=== PATIENT | female | born 2000 | race Caucasian/White ===

== ENCOUNTER 2021-03-20 13:19 | Emergency (ER) | payer BC ==
[~2021-03-20] VITALS: Ht 167.6 cm; Wt 72.7 kg
--- NOTE | 2021-03-20 13:44 | NUR ---
WOODROW Baldwin at bedside
[2021-03-20] MEDS ORDERED: charcoal, activated 50 GM/240 ML bottle PO ONE (13:50)
[2021-03-20 14:22] LABS: BASOPHILS % (AUTO) 0.2 % (0-1); EOSINOPHILS # (AUTO) 0.1 X10'3 (0-0.9); EOSINOPHILS % (AUTO) 0.8 % (0-6); HEMATOCRIT 37.7 % (35.0-45.0); HEMOGLOBIN 12.8 g/dl (12.0-16.0); LYMPHOCYTES % (AUTO) 30.6 % (21-51); MEAN CORPUSCULAR HEMOGLOBIN 30.7 PG (27.0-31.0); MEAN CORPUSCULAR HGB CONC 33.8 g/dL (33.0-36.5); MEAN CORPUSCULAR VOLUME 90.7 FL (78-98); MEAN PLATELET VOLUME 7.8 FL (7.4-10.4); MONOCYTES # (AUTO) 0.7 X10'3 (0-0.9); MONOCYTES % (AUTO) 7.4 % (2-12); PLATELET COUNT 276 X10'3 (140-440); RED BLOOD COUNT 4.16 X10'6 (4.20-5.60); RED CELL DISTRIBUTION WIDTH 12.7 % (11.5-14.5); WHITE BLOOD COUNT 9.8 X10'3 (4.5-11.0)
[2021-03-20 14:37] LABS: ALANINE AMINOTRANSFERASE 23 U/L (12-78); ALBUMIN 3.3 G/DL (3.4-5.0); ALKALINE PHOSPHATASE 49 IU/L (46-116); ANION GAP 11 (8-16); ASPARTATE AMINO TRANSFERASE 20 U/L (10-37); BILIRUBIN,TOTAL 0.5 MG/DL (0.1-1.0); BLOOD UREA NITROGEN 12 MG/DL (7-18); BUN/CREATININE RATIO 12.8 (6.6-38.0); CALCIUM 8.8 MG/DL (8.5-10.1); CHLORIDE 108 MMOL/L (99-107); CREATININE 0.94 MG/DL (0.40-0.90); GLUCOSE 83 MG/DL (70-104); POTASSIUM 3.2 MMOL/L (3.5-5.1); SODIUM 143 MMOL/L (135-145); TOTAL CARBON DIOXIDE 23.6 MMOL/L (24-32); TOTAL PROTEIN 6.6 G/DL (6.4-8.2); eGFR 74 ML/MIN
[2021-03-20 14:39] LABS: ACETAMINOPHEN < 2.0 UG/ML (10-30); ETHANOL < 0.010 GM/DL (0.0-0.010)
[2021-03-20 15:16] LABS: URINE HCG NEGATIVE (NEG)
[2021-03-20 15:23] LABS: URINE AMPHETAMINE SCREEN NEGATIVE (Neg); URINE BARBITUATE SCREEN NEGATIVE (Neg); URINE BENZODIAZEPINES SCREEN NEGATIVE (Neg); URINE CANNABINOID SCREEN NEGATIVE (Neg); URINE COCAINE SCREEN NEGATIVE (Neg); URINE METHADONE SCREEN NEGATIVE (Neg); URINE OPIATE SCREEN NEGATIVE (Neg); URINE PHENCYCLIDINE SCREEN NEGATIVE (Neg)
--- NOTE | 2021-03-20 16:07 | NUR ---
ASSISTED ON A BSC.MOM AT BEDSIDE.
[2021-03-20] MEDS ORDERED: normal saline 1000ml 1,000 ML IV ONE (18:15)
--- NOTE | 2021-03-20 19:20 | NUR ---
Patient provided with dinner- able to feed herself. Calm and cooperative, flat affect. In the last month patient is reproted to 'go missing/run away'.
--- NOTE | 2021-03-20 19:30 | NUR ---
MEDICALLY CLEARED PACKET FAXED TO @ [id number].
--- NOTE | 2021-03-20 19:31 | NUR ---
Patient unable to recall names of her home medications which she states she has not taken in the past few days. Her mom Trang [phone] would be able to tell us patient reports.
--- NOTE | 2021-03-20 20:22 | NUR ---
Spoke with Lit at Poison Control. Labs, EKG QTS and QTc intervals reviewed with Lit. Lit states patient cleared from Poison Control standpoint and recommends replacing K+ of 3.2. Provider notified.
[2021-03-20] MEDS ORDERED: potassium Cl 20 mEq SR tablet PO STA (20:48)
[2021-03-20] MEDS ORDERED: BUS15T PO (21:47)
[2021-03-20] MEDS ORDERED: DULO-31 PO (21:48)
--- NOTE | 2021-03-21 07:21 | NUR ---
PACKET FAXED TO [facility]
[2021-03-21 07:44] LABS: CLARITY,URINE SLIGHTLY CLOUDY (Clear); COLOR,URINE YELLOW (Yellow); GLUCOSE, URINE NEGATIVE (Neg); KETONES,URINE NEGATIVE (Neg); LEUKOCYTE ESTERASE ,URINE NEGATIVE (Neg); NITRITES, URINE NEGATIVE (Neg); OCCULT BLOOD,URINE MODERATE (Neg); PROTEIN,URINE NEGATIVE (Neg); UROBILINOGEN,URINE 0.2 E.U/dL (0.2-1.0)
[2021-03-21 07:45] LABS: UA COLLECTION TYPE CLN CATCH MIDSTREAM
[2021-03-21 07:54] LABS: WBC,URINE 0-4 /HPF (0-4)
[2021-03-21 07:55] LABS: BACTERIA,URINE 1+ /HPF (Neg); MUCUS STRANDS FEW /LPF (Neg); SQUAMOUS EPITHELIAL CELL,UR MODERATE /LPF (FEW)
[2021-03-21] MEDS: duloxetine 30mg CAPSULE.DR PO SCH (09:14)
[2021-03-21] MEDS: busPIRone 15mg tablet PO SCH (09:15)
--- NOTE | 2021-03-21 11:02 | NUR ---
FAMILY AT BEDSIDE Addendum: 03/21/21 at 1102 by [email or web address] ANKITA BY BARON
--- NOTE | 2021-03-21 11:26 | NUR ---
EVALUATION BY [facility] STATED THEY WILL KEEP HER ON A HOLD AND LOOK FOR PLACEMENT.
[2021-03-22 06:57] VITALS: BP 116/56
[2021-03-22] MEDS: busPIRone 15mg tablet PO SCH (08:25)
[2021-03-22] MEDS: duloxetine 30mg CAPSULE.DR PO SCH (08:25)
--- NOTE | 2021-03-22 10:32 | NUR ---
pt is polite, cooperative, denies having any needs at this time.
--- NOTE | 2021-03-22 12:36 | NUR ---
pt is sitting in bed, father came and visited. pt is polite and cooperative.
--- NOTE | 2021-03-22 14:02 | NUR ---
Pt is sitting in bed coloring. no needs at this time.
--- NOTE | 2021-03-22 15:52 | NUR ---
pt is sleeping. pt has been accepted at [facility].
== END 2021-03-22 16:27 ==
LOC: ER 13:19
DX: T45.0X2A Poisoning by antiallergic and antiemetic drugs, intentional self-harm, initial encounter (principal); Z79.899 Other long term (current) drug therapy; Y92.89 Other specified places as the place of occurrence of the external cause
CPT/HCPCS: 36415; 80053; 80305; 80320; 80329; 81001; 81025; 85025; 93005; 96360; 99285; J7030

== ENCOUNTER 2021-03-22 14:10 | Inpatient (IN) | payer BC ==
[~2021-03-22] VITALS: Ht 167.6 cm; Wt 72.7 kg
[~2021-03-22 14:10] MED LIST: BUS15T PO; DULO-31 PO
[2021-03-22 14:51] VITALS: BP 115/85
[2021-03-22] MEDS ORDERED: mag hydrox/Alum hydrox/simeth 30ml oral suspension PO PRN (16:05)
[2021-03-22] MEDS ORDERED: loperamide 2mg capsule PO PRN (16:05)
[2021-03-22] MEDS ORDERED: traZODone 50mg tablet PO PRN (16:05)
[2021-03-22] MEDS ORDERED: acetaminophen 325mg tablet PO PRN (16:05)
[2021-03-22] MEDS ORDERED: magnesium hydroxide 30ml (MOM) UD suspension PO PRN (16:05)
[2021-03-22] MEDS ORDERED: NICOTINE POLACRILEX 2 MG LOZENGE BC PRN (16:05)
[2021-03-22] MEDS ORDERED: LORazepam 1 MG tablet PO PRN (16:05)
--- NOTE | 2021-03-22 16:28 | NUR ---
Admission note: PT admitted to [facility] today on a 5150 for DTS at 1617 escorted by security. Pt had intentionally ingested 30 pills of a sleep aid in an attempt to kill herself. Pt also stated that she attempted to overdose 2 weeks ago with Advil as well. Pt is upset about "Im not where I want to be in life right now". Pt states feeling down most the time, losing interest in the things she likes, oversleeping, isolating and low appetite. Pt denies any medical history or diagnosis. Pt cooperative with admission process.
[2021-03-22 19:55] VITALS: BP 115/83
--- NOTE | 2021-03-22 23:43 | NUR ---
Nursing Progress Note: Legal hold: 5150 Client on involuntary status for DTS Report received from Nasir BURNETTE with use of SBAR Why are they here Patient was brought in by EMS to our ED for evaluation of intentional overdose, onset just 1 hour prior to arrival. Patient was reportedly complaining about her job to her aunt and mother who "made fun of her." Patient then went to [employer] and bought a bottle of sleep aid and took 32 tablets (800 mg worth) in an attempt to commit suicide. Patient denied any homicidal ideation, hallucinations, fever, chills, or any other associated symptoms at this time. Patient denied any other alleviating or exacerbating factors. Assessment What has happened this shift: Pt up on unit, watched TV, made phone calls, came to snack. Tearful at times. Pt says this is her first psychiatric admit and she is apprehensive. Discussed with pt the care she will receive here. That if she has any questions or feels unsafe to talk to staff. Pt seemed reassured and verbalized understanding. Pt pleasant and cooperative with care. No routine medications took PRN Trazodone for sleep. S/I, H/I: Denies A/VH: Denies Sleep: sleeping at this time ADL's: Independent Group attendance: NA Were meds taken: No routine Any med S/E No Mental Status Exam Appearance: Attractive well groomed Eye contact: direct Behavior: Cooperative Speech: Quiet, normal rate and rhythm Mood: depressed Affect: depressed Thought process: Linear Thought Content: Concern about discharge Cognition: WNL Insight: fair Judgment: fair Interventions PRN's used: Trazodone Therapeutic interventions: Provided 1:1 assessment with therapeutic communication and active listening, medication administration/education/monitoring, encouraged to participate in milieu, q 15min safety checks. Restraints/seclusion/emergency medication: N/A Justification of Continued Inpatient Treatment: The patient is in need of crisis interruption, medication management, and monitoring in a safe and therapeutic environment until stable
[2021-03-23 08:00] VITALS: BP 109/67
[2021-03-23 08:31] LABS: HEMOGLOBIN A1C 5.4 % (4.5-6.2)
[2021-03-23 08:51] LABS: CHOL/HDL RATIO 3.8 (0.00-4.99); CHOLESTEROL 241 MG/DL (0-200); HDL CHOLESTEROL 63 MG/DL (35-60); LDL CHOLESTEROL 124 MG/DL (50-100); TRIGLYCERIDES 217 MG/DL (20-135)
[2021-03-23] MEDS ORDERED: atorvastatin 20mg tablet PO SCH (09:05)
--- NOTE | 2021-03-23 14:49 | NUR ---
Pt. attended group today. Todays group was about the difference between Growth Mindset vs. Fixed Mindset. We learned about the differences and then discussed what aspect of developing a growth mindset they wanted to work on. Pt. was very quiet in the group, she did not want to share but she listened to this Ware Dresser and her peers intently. She had a calm and compliant demeanor. She smiled and did not avoid eye contact. She just appeared a bit timid to share. Sherrell Mendoza, CONFECTIONERY COOKER
[2021-03-23] MEDS ORDERED: potassium Cl 40MEQ/1/2NS 520ml 520 ML IV PRN (16:20)
[2021-03-23] MEDS ORDERED: magnesium 4gm in 100ml NS 100 ML IV PRN (16:20)
[2021-03-23] MEDS ORDERED: potassium Cl 20 mEq SR tablet PO PRN ×2 (16:20)
[2021-03-23] MEDS ORDERED: magnesium Cl slow-release 64mg tablet PO PRN (16:20)
[2021-03-23] MEDS ORDERED: lamoTRIgine 25mg tablet PO ONE (17:00)
--- NOTE | 2021-03-23 18:13 | NUR ---
What has happened this shift: Patient awake alert and up for breakfast. Patient spent most of shift in group room today. Denies SI/HI and denies A/V hallucinations. . Patient is pleasant and in no distress. Dr. Yoon into see patient and assess.Taking dinner inher room no c/o . S/I, H/I: Denies. A/VH: Denies. Sleep: Slept most of the day. ADL's: Independent. Group attendance: No group Were meds taken: Yes Any med S/E: None noted Mental Status Exam Appearance: Hair messy but clean. Pt wearing green scrubs Eye contact: Fair Behavior: Withdrawn, isolative, guarded Speech: Soft Mood: Depressed. Affect: Flat Thought process: Circumstantial Thought Content: Meeting needs, Depressed. Cognition: Alert. Insight: Fair. Judgment: Poor. Interventions PRN's used: None. Therapeutic interventions: 1:1 assessment, therapeutic communication, active listening, ensured contract for safety, medication administration/education/monitoring, encouragement to come out of room and participate in unit activities Q 15 minute safety checks. Restraints/seclusion/emergency medication: N/A Justification of Continued Inpatient Treatment: Patient requires interruption of current crisis in safe and therapeutic milieu. Patient would benefit from a substance abuse program when stable.
[2021-03-23 20:00] VITALS: BP 119/74
[2021-03-23] MEDS: K and/or MAG REPLACEMENT MC SCH (20:00)
[2021-03-23] MEDS: busPIRone 5mg tablet PO SCH (20:20)
[2021-03-23] MEDS: atorvastatin 20mg tablet PO SCH (20:20)
--- NOTE | 2021-03-24 01:49 | NUR ---
Nursing Progress Note: Legal hold: 5150 Client on involuntary status for DTS Report received from LISET Best with use of SBAR Why are they here Patient was brought in by EMS to our ED for evaluation of intentional overdose, onset just 1 hour prior to arrival. Patient was reportedly complaining about her job to her aunt and mother who "made fun of her." Patient then went to [employer] and bought a bottle of sleep aid and took 32 tablets (800 mg worth) in an attempt to commit suicide. Patient denied any homicidal ideation, hallucinations, fever, chills, or any other associated symptoms at this time. Patient denied any other alleviating or exacerbating factors. Assessment What has happened this shift: The patient was seen at bedside for 1:1. She's pleasant and in a good mood. She denies being depressed, and says she is no longer suicidal. Patient spent the evening on the phone, which sounded like the conversation went well. There was some laughter. When not on the phone she was laying on her bed reading a novel. She was compliant with HS med pass, and lay there reading well into the night. S/I, H/I: Denies A/VH: Denies Sleep: See sleep assessment ADL's: Independent Group attendance: N/A Were meds taken: Yes Any med S/E: None reported or observed. Mental Status Exam Appearance: Attractive well groomed young lady wearing unit scrubs. Eye contact: Direct Behavior: Cooperative, little guarded Speech: Quiet, normal rate and rhythm Mood: Good Affect: Full Thought process: Linear Thought Content: Concern about discharge Cognition: A/O x4 Insight: fair Judgment: fair Interventions PRN's used: Therapeutic interventions: Provided 1:1 assessment with therapeutic communication and active listening, medication administration/education/monitoring, encouraged to participate in milieu, q 15min safety checks. Restraints/seclusion/emergency medication: N/A Justification of Continued Inpatient Treatment: The patient is in need of crisis interruption, medication management, and monitoring in a safe and therapeutic environment until stable
[2021-03-24 07:03] LABS: MAGNESIUM 2.2 MG/DL (1.5-2.4); POTASSIUM 4.5 MMOL/L (3.5-5.1)
[2021-03-24 08:00] VITALS: BP 109/71
[2021-03-24] MEDS: K and/or MAG REPLACEMENT MC SCH ×2 (08:00→20:00)
[2021-03-24] MEDS ORDERED: busPIRone 15mg tablet PO SCH (08:00)
[2021-03-24] MEDS: busPIRone 5mg tablet PO SCH ×2 (08:19→20:13)
[2021-03-24] MEDS: duloxetine 30mg CAPSULE.DR PO SCH (08:19)
--- NOTE | 2021-03-24 11:15 | NUR ---
CM Presenting Issues: SS received vm from pt's mother informing SS that pt's father had tested positive for COVID. Interventions: SS notified care team. FREDY NixonW Addendum: 03/24/21 at 1124 by Deepika Sutton Amended: Links added.
[2021-03-24] MEDS ORDERED: lamoTRIgine 25mg tablet PO ONE (12:35)
--- NOTE | 2021-03-24 13:55 | NUR ---
Nursing Progress Note: Legal hold: 5150 Client on involuntary status for DTS Report received from Nasir BURNETTE with use of SBAR Why are they here Patient was brought in by EMS to our ED for evaluation of intentional overdose, onset just 1 hour prior to arrival. Patient was reportedly complaining about her job to her aunt and mother who "made fun of her." Patient then went to [employer] and bought a bottle of sleep aid and took 32 tablets (800 mg worth) in an attempt to commit suicide. Patient denied any homicidal ideation, hallucinations, fever, chills, or any other associated symptoms at this time. Patient denied any other alleviating or exacerbating factors. Assessment What has happened this shift: Patient was asleep at change of shift and up for breakfast. Patient is quiet but has been a little more social today. Patient was hanging out in the Community Room watching T.V. Patient states she is no longer depressed and no longer feeling suicidal. RN asked patient what has changed. Patient shrugged her shoulders. RN believes patient is minimizing and really just wants to go home where it is comfortable. Patient also watches T.V. in the Rec Room. No distress observed today. S/I, H/I: Denies A/VH: Denies Sleep: No naps as of this writing. ADL's: Independent Group attendance: Yes Were meds taken: yes Any med S/E No Mental Status Exam Appearance: Wearing green scrubs, long hair. Eye contact: direct Behavior: Cooperative Speech: Quiet, normal rate and rhythm Mood: Euthymic Affect: Flat Thought process: Linear Thought Content: Feels she is ready to go home Cognition: WNL Insight: fair Judgment: fair Interventions PRN's used: None Therapeutic interventions: Provided 1:1 assessment with therapeutic communication and active listening, medication administration/education/monitoring, encouraged to participate in milieu, q 15min safety checks. Restraints/seclusion/emergency medication: N/A Justification of Continued Inpatient Treatment: The patient is in need of crisis interruption, medication management, and monitoring in a safe and therapeutic environment until stable
--- NOTE | 2021-03-24 14:20 | NUR ---
t. attended group today. We talked about the five love languages, and Patients took a test to determine which their top love language. Today they worked on social skills by sharing with each other about how they function in a relationship (any relationship) in light of what they now believe is their love language. It was a very interactive group today, which lots of laughter and fun. She was alert and oriented X 4. Her thought content and thought process was WNL. She interacted and engaged appropriately. She doesn't usually speak out unless asked to but then she will share minimally. She shared that she came out as quality time which she agreed with. She did not elaborate much but did listen intently to her peers and was seen laughing at the jokes her peers were making. Her mood seemed a bit anxious with a flat affect. Sherrell Mendoza LCSW
[2021-03-24 20:00] VITALS: BP 118/78
[2021-03-24] MEDS: atorvastatin 20mg tablet PO SCH (20:13)
--- NOTE | 2021-03-25 00:30 | NUR ---
Nursing Progress Note: Legal hold: 5150 Client on involuntary status for DTS Report received from LISET Best with use of SBAR Why are they here Patient was brought in by EMS to our ED for evaluation of intentional overdose, onset just 1 hour prior to arrival. Patient was reportedly complaining about her job to her aunt and mother who "made fun of her." Patient then went to [facility] and bought a bottle of sleep aid and took 32 tablets (800 mg worth) in an attempt to commit suicide. Patient denied any homicidal ideation, hallucinations, fever, chills, or any other associated symptoms at this time. Patient denied any other alleviating or exacerbating factors. Assessment What has happened this shift: The patient was on the unit watching tv and exercising, although keeping to herself. She denies AH/VH/SI/HI. She cannot specify any triggers leading up to her suicide attempt, as she shrugged a lot and stated I guess a lot of little things. When asked about her no longer being suicidal or depressed after an OD, pt again shrugged and stated I dont know, Im just better now. Pt seems to be minimizing. She states she tried to get a counselor but the office times were limited and conflicted with her work schedule; she states she is open to trying online counseling platforms. S/I, H/I: Denies A/VH: Denies Sleep: See sleep assessment ADL's: Independent Group attendance: N/A Were meds taken: Yes Any med S/E: None reported nor observed Mental Status Exam Appearance: Clean, appropriate attire Eye contact: Direct Behavior: Cooperative, guarded, using exercise machine, watching the flikdate Speech: Quiet, normal rate and rhythm Mood: Im fine, Pt presents as mildly anxious Affect: Full Thought process: Linear Thought Content: discussing counseling and home life Cognition: A/O x4 Insight: poor to fair Judgment: fair Interventions PRN's used: None Therapeutic interventions: Provided 1:1 assessment with therapeutic communication and active listening, medication administration/education/monitoring, encouraged to participate in milieu, q 15min safety checks. Restraints/seclusion/emergency medication: N/A Justification of Continued Inpatient Treatment: The patient is in need of crisis interruption, medication management, and monitoring in a safe and therapeutic environment until stable Addendum: 03/25/21 at 0349 by Ana Segura RN FREDRICK Sutherland acquired care of this patient at 034.
[2021-03-25 08:00] VITALS: BP 112/62
[2021-03-25] MEDS: lamoTRIgine 25mg tablet PO SCH (08:27)
[2021-03-25] MEDS: busPIRone 5mg tablet PO SCH ×2 (08:28→20:02)
[2021-03-25] MEDS: duloxetine 30mg CAPSULE.DR PO SCH (08:28)
[2021-03-25 09:25] LABS: MAGNESIUM 2.1 MG/DL (1.5-2.4); POTASSIUM 4.2 MMOL/L (3.5-5.1)
[2021-03-25] MEDS: acetaminophen 325mg tablet PO PRN (13:51)
--- NOTE | 2021-03-25 17:40 | NUR ---
Nursing Progress Note: Karen Zuluaga Legal hold: Voluntary for DTS Report received from LISET Lebron with use of SBAR Why are they here Patient was brought in by EMS to our ED for evaluation of intentional overdose, onset just 1 hour prior to arrival. Patient was reportedly complaining about her job to her aunt and mother who "made fun of her." Patient then went to [employer] and bought a bottle of sleep aid and took 32 tablets (800 mg worth) in an attempt to commit suicide. Patient denied any homicidal ideation, hallucinations, fever, chills, or any other associated symptoms at this time. Patient denied any other alleviating or exacerbating factors. Assessment What has happened this shift: Patient was noted walking around unit upon change of shift. She participated in the community room for breakfast with peers. She is polite and soft spoken. 1:1 assessment completed, lungs CTA. She denies SI/HI, AH or VH. She is compliant with medications. Patient signed voluntary hold on this shift. She was quiet, guarded, and reserved upon assessment. Pt stated she struggles with anxiety but tries to use deep breathing and distraction efforts to make it better. She was observed in group therapy session on this shift. During group patient was isolative to self, listening to others as they participated. She stated that she enjoys coloring and was observed drawing in a coloring book in her room. She took short, infrequent naps throughout the day and participated in the community room for meals. She was observed sitting in the recreation room putting a puzzle together toward the end of the day. S/I, H/I: Denies A/VH: Denies Sleep: Pt slept 7 hours last night per NOC shift, on and off throughout the day ADL's: Independent Group attendance: Yes Were meds taken: Yes Any med S/E: None reported nor observed Mental Status Exam Appearance: Clean, groomed, wearing green unit scrubs Eye contact: Good Behavior: Quiet, cooperative, guarded, isolative, reserved Speech: Clear, soft-spoken Mood: I am kind of anxious. Affect: Calm, composed, polite Thought process: Linear Thought Content: Anxious thoughts of unknown origin Cognition: A&O x4, able to make needs known to staff Insight: fair Judgment: fair Interventions PRN's used: Tylenol Therapeutic interventions: Maintained a safe and therapeutic environment, 1:1 assessment, therapeutic communication, behavior monitoring, active listening, ensured contract for safety, medication administration/education/monitoring, Q 15 minute safety checks. Restraints/seclusion/emergency medication: N/A Justification of Continued Inpatient Treatment: The patient is in need of crisis interruption, medication management, and monitoring in a safe and therapeutic environment until stable. Discharge goal is for patient to return home to her grandparents.
[2021-03-25 20:00] VITALS: BP 110/71
[2021-03-25] MEDS: atorvastatin 20mg tablet PO SCH (20:02)
--- NOTE | 2021-03-26 01:13 | NUR ---
Nursing Progress Note: Legal hold: Vol for DTS Report received from LISET Sutherland with use of SBAR Why are they here Patient was brought in by EMS to our ED for evaluation of intentional overdose, onset just 1 hour prior to arrival. Patient was reportedly complaining about her job to her aunt and mother who "made fun of her." Patient then went to [facility] and bought a bottle of sleep aid and took 32 tablets (800 mg worth) in an attempt to commit suicide. Patient denied any homicidal ideation, hallucinations, fever, chills, or any other associated symptoms at this time. Patient denied any other alleviating or exacerbating factors. Assessment What has happened this shift: Pt kept to herself this evening, spending most of the evening playing a puzzle. She denies AH/VH/SI/HI. She had a long conversation with a friend that went well and in which the pt was laughing. She is having menstrual cramps and requested a heating pad to good effect. S/I, H/I: Denies A/VH: Denies Sleep: See sleep assessment ADL's: Independent Group attendance: N/A Were meds taken: Yes Any med S/E: None reported nor observed Mental Status Exam Appearance: Clean, appropriate attire Eye contact: Direct Behavior: Cooperative, guarded, playing a puzzle, talking on the phone Speech: Quiet, normal rate and rhythm Mood: Good Affect: Full Thought process: Linear Thought Content: feeling better Cognition: A/O x4 Insight: fair Judgment: fair Interventions PRN's used: None Therapeutic interventions: Provided 1:1 assessment with therapeutic communication and active listening, medication administration/education/monitoring, encouraged to participate in milieu, q 15min safety checks. Restraints/seclusion/emergency medication: N/A Justification of Continued Inpatient Treatment: The patient is in need of crisis interruption, medication management, and monitoring in a safe and therapeutic environment until stable
[2021-03-26 07:30] VITALS: BP 116/74
[2021-03-26] MEDS: lamoTRIgine 25mg tablet PO SCH (08:06)
[2021-03-26] MEDS: busPIRone 5mg tablet PO SCH (08:06)
[2021-03-26] MEDS: duloxetine 30mg CAPSULE.DR PO SCH (08:06)
--- NOTE | 2021-03-26 09:08 | NUR ---
Pt. attended group today. We discussed [facility] and talked about where they felt they were on their journey. We then did an Art Expressions where they had to draw a symbol that they feel represents themselves. They shared this with the group. Pt. was quiet in group today but she did follow along and engage in the activity. She subhash a symbol that represented herself but declined sharing it with the group. At the end of group she showed this Fuller Brush Worker the picture and shared. She had drawn a picture of a person with a red thorn in their side. She had an arrow pointed to that with a label "ME". She described that she feels like a thorn, like an annoyance to others. She went on to explain that it isn't anything anyone is saying to her but she just feels that way, like her presence is a bother to others. We spent some time talking about her feelings. Her mood appeared depressive with a congruent flat affect. Her thought content and thought process appeared WNL. She was alert and oriented X 4. She was calm in her demeanor, she listened to her peers but did not chose to engage with anyone (except this Fuller Brush Worker) or the group. She was working on some journaling prompts as well about her treatment process she showed this Fuller Brush Worker. Sherrell Mendoza LCSW
--- NOTE | 2021-03-26 09:52 | NUR ---
DCP Presenting Issues: Pt's stable and no longer suicidal, pt wants to d/c to her grandparents' home as her father is dealing w/some health issues at the moment and will need to quarantine. Interventions: SS met w/pt and finalized her dcp w/her, per discussion pt agreed to attend virtual follow-up w/her PMD, pt's has completed her registration at the [facility] and will participate in their IOP services. SS had t/c w/pt's mother, per t/c the mother is in agreement w/current dcp and supports pt's d/c to her grandparents' home, grandparents are awaiting their COVID results. SS consulted w/attending physician re dcp and new COVID test, per consultation, pt will be tested again since she'll be staying w/her grandparents who are @ greater risk due to their age. Plan: Pt to d/c today pending result of Rapid COVID test, she will d/c to her grandparents' home. Deepika Sutton LCSW Addendum: 03/26/21 at 1023 by Deepika GENAO Amended: Links added.
[2021-03-26] MEDS: acetaminophen 325mg tablet PO PRN (11:52)
--- NOTE | 2021-03-26 13:01 | NUR ---
Pt. attended group today. We talked about hearing voices and read an article about coping strategies. We discussed what coping strategies they had success with in the past. Pt. engaged, she listened to this Hand[employer] Choir Director and her peers. She spoke up when asked but otherwise did not share. She was friendly and pleasant to work with. She was alert and oriented X 4. Sherrell Mendoza SHIP BOSS
[2021-03-26] MEDS ORDERED: LAMO25TA5 PO (14:01)
[2021-03-26] MEDS ORDERED: BUSP15TA7 PO (14:01)
[2021-03-26] MEDS ORDERED: ATOR20TA66 PO (14:01)
[2021-03-26] MEDS ORDERED: DULO60CA65 PO (14:01)
--- NOTE | 2021-03-26 16:21 | NUR ---
DISCHARGE NOTE: Pt was discharged to her grandparents at 1608. She ambulated off the unit accompanied by RN. Pt expressed understanding of her discharge instructions including Rxs and follow up appointments. All pt's belongings returned.
== END 2021-03-26 16:08 | disposition home or self-care (01) | DRG 881 ==
LOC: ADULT MH 14:10
PROVIDERS: ADMIT Psychiatry & Neurology Psychiatry; ATTEND Psychiatry & Neurology Psychiatry
DX: F32.9 Major depressive disorder, single episode, unspecified (principal); R45.851 Suicidal ideations; E78.5 Hyperlipidemia, unspecified; E87.6 Hypokalemia; E66.3 Overweight; R00.0 Tachycardia, unspecified; Z20.822 Contact with and (suspected) exposure to COVID-19; T45.0X2A Poisoning by antiallergic and antiemetic drugs, intentional self-harm, initial encounter; Y92.89 Other specified places as the place of occurrence of the external cause; Z79.899 Other long term (current) drug therapy; Z68.25 Body mass index [BMI] 25.0-25.9, adult
CPT/HCPCS: 36415; 80061; 83036; 83735; 84132; 84443; 87081; 87635